=== PATIENT | female | born 1980 | race Caucasian/White ===

== ENCOUNTER 2017-02-24 09:06 | Emergency (ER) | payer OTHER ==
[~2017-02-24] VITALS: Ht 162.6 cm; Wt 65.0 kg
[~2017-02-24 09:06] MED LIST: IBUP600T OR; VICO5TAB OR
[2017-02-24] MEDS ORDERED: IBUP-1022 PO (09:17)
[2017-02-24] MEDS ORDERED: GI COCKTAIL 50ML BTL(HYOSCYAMINE/MAALOX/LIDOCAINE VISCOUS)(1:3:1) PO ONE (10:00)
[2017-02-24] MEDS ORDERED: ONDANSETRON 4 MG ORAL DISINTEGRATING TAB (S0181) PO ONE (10:00)
[2017-02-24 10:07] LABS: BASO # 0.1 K/mm3 (0.0-0.2); BASO % 0.9 % (0.0-1.0); EOS # 0.2 K/mm3 (0.0-0.50); EOS % 3.1 % (0.0-3.0); LARGE UNSTAINED CELL # 0.1 K/mm3 (0.0-0.4); LARGE UNSTAINED CELL % 1.6 % (0.0-4.0); LYMPH # 1.4 K/mm3 (1.5-4.5); LYMPH % 21.1 % (24.0-44.0); MEAN CORPUSCULAR HEMOGLOBIN 30.4 pg (27.0-33.0); MEAN CORPUSCULAR HGB CONC 35.2 g/dl (32.0-36.5); MEAN CORPUSCULAR VOLUME 86.4 fl (80.0-96.0); MONO # 0.4 K/mm3 (0.0-0.8); MONO % 5.9 % (0.0-5.0); NEUTROPHILS # 4.6 K/mm3 (1.8-7.7); NEUTROPHILS % 67.4 % (36.0-66.0); PLATELET COUNT, AUTOMATED 271 k/mm3 (150-450); RED CELL DISTRIBUTION WIDTH 12.1 % (11.5-14.5); WHITE BLOOD COUNT 6.8 K/mm3 (4.0-10.0)
--- NOTE | 2017-02-24 10:31 | REP ---
ABDOMEN SERIES: Three views. HISTORY: Nausea, epigastric pain, NSAID use. COMPARISON STUDY: November 12, 2008. FINDINGS: Upright chest radiograph is normal. There is no evidence of infiltrate or free subdiaphragmatic air. Heart is not enlarged. Pulmonary vasculature is not increased. Supine and erect views of the abdomen shows umbilical jewelry. Bowel gas pattern is normal. No mass, organomegaly, or pathologic calcification is seen. There is some degenerative sclerosis on the right side of the symphysis pubis consistent with osteitis pubis. IMPRESSION: No acute abnormality. Signed by Rakesh Flores MD 02/24/2017 01:11 P
[2017-02-24 10:35] LABS: ALBUMIN 3.6 GM/DL (3.2-5.2); ALBUMIN/GLOBULIN RATIO 1.13 (1.00-1.93); ALKALINE PHOSPHATASE 77 U/L (45-117); ALT/SGPT 15 U/L (12-78); AMYLASE 52 U/L (25-115); ANION GAP 8 MEQ/L (8-16); AST/SGOT 11 U/L (15-37); BILIRUBIN,DIRECT < 0.1 MG/DL (0.0-0.2); BILIRUBIN,TOTAL 0.3 MG/DL (0.2-1.0); BLOOD UREA NITROGEN 14 MG/DL (7-18); CALCIUM LEVEL 8.8 MG/DL (8.5-10.1); CARBON DIOXIDE LEVEL 27 MEQ/L (21-32); CHLORIDE LEVEL 109 MEQ/L (98-107); CREATININE FOR GFR 0.56 MG/DL (0.55-1.02); GLOMERULAR FILTRATION RATE > 60.0 (>60); GLUCOSE, FASTING 70 MG/DL (70-105); POTASSIUM SERUM 3.8 MEQ/L (3.5-5.1); SODIUM LEVEL 144 MEQ/L (136-145); TOTAL PROTEIN 6.8 GM/DL (6.4-8.2)
--- NOTE | 2017-02-24 10:37 | REP ---
Right upper quadrant sonography: History: Postprandial epigastric pain. Comparison study: Comparison CT study September 29, 2014. Findings: Scanning through the right upper quadrant of the abdomen demonstrates a somewhat contracted appearing , thin-walled gallbladder without evidence of stone or polyp. Common bile duct is normal measuring 0.3 cm in greatest diameter. No focal liver lesion is seen. Liver size is normal. No pancreatic abnormality is observed. No right renal abnormality is seen. There is no evidence of ascites. The right kidney measures 11.2 x 5.9 x the 4.4 the cm. Impression: The gallbladder has a somewhat contracted appearance, otherwise negative right upper quadrant sonography. Signed by Rakesh Flores MD 02/24/2017 10:29 A
[2017-02-24] MEDS ORDERED: SIME1CAP PO (10:45)
[2017-02-24] MEDS ORDERED: PROT1TAB2 PO (10:45)
[2017-02-24] MEDS ORDERED: ZOFR4TAB3 PO (10:45)
[2017-02-24 10:50] VITALS: BP 106/67
== END 2017-02-24 10:51 | disposition home or self-care (01) ==
LOC: M ED 09:06
DX: K29.00 Acute gastritis without bleeding (principal); F17.200 Nicotine dependence, unspecified, uncomplicated; Z79.899 Other long term (current) drug therapy

== ENCOUNTER 2017-04-25 09:21 | Emergency (ER) | payer OTHER ==
[~2017-04-25] VITALS: Ht 157.5 cm; Wt 65.1 kg
[~2017-04-25 09:21] MED LIST changes: +IBUP-1022 PO; +PROT1TAB2 PO; +SIME1CAP PO; +ZOFR4TAB3 PO
[2017-04-25 09:23] VITALS: BP 119/72
[2017-04-25] MEDS ORDERED: KEFL500C17 PO (09:44)
[2017-04-25] MEDS ORDERED: FLON1SPR (09:45)
== END 2017-04-25 09:50 | disposition home or self-care (01) ==
LOC: M ED 09:21
DX: J01.90 Acute sinusitis, unspecified (principal); Z87.59 Personal history of other complications of pregnancy, childbirth and the puerperium

== ENCOUNTER → 2017-08-10 | Outpatient (REF) | payer OTHER ==
[2017-08-13 00:07] LABS: HPV HYBRID CAPTURE II Negative (Negative)
== END ==
LOC: M SFHCWAGY 11:39
DX: Z12.4 Encounter for screening for malignant neoplasm of cervix (principal)

== ENCOUNTER → 2017-08-16 | Outpatient (CLI) | payer OTHER | LOC: M WHC 09:48 | DX: Z12.31 Encounter for screening mammogram for malignant neoplasm of breast (principal); Z80.3 Family history of malignant neoplasm of breast | CPT/HCPCS: 77067 ==

== ENCOUNTER 2017-08-26 09:19 | Day surgery (SDC) | payer OTHER ==
[2017-08-26] MEDS: NS 1,000 ML IV (09:40)
[2017-08-26] MEDS ORDERED: fentaNYL 100 MCG/2 ML INJECTION (J3010) As Ordered (10:46)
[2017-08-26] MEDS ORDERED: LIDOCAINE 2% INJ 100 MG/5 ML SDV (FOR ANES.) As Ordered (10:55)
[2017-08-26] MEDS ORDERED: PROPOFOL 200 MG/20 ML VIAL As Ordered ×2 (10:55)
== END 2017-08-26 11:37 | disposition home or self-care (01) ==
LOC: M OPP 09:19
DX: K58.1 Irritable bowel syndrome with constipation (principal); R10.9 Unspecified abdominal pain; R12 Heartburn; K44.9 Diaphragmatic hernia without obstruction or gangrene; F17.210 Nicotine dependence, cigarettes, uncomplicated; F33.9 Major depressive disorder, recurrent, unspecified; F41.9 Anxiety disorder, unspecified; Z79.899 Other long term (current) drug therapy; Z98.890 Other specified postprocedural states; Z80.0 Family history of malignant neoplasm of digestive organs
CPT/HCPCS: 45378

== ENCOUNTER 2017-09-05 10:50 | Emergency (ER) | payer OTHER | END 2017-09-05 13:09 | disposition home or self-care (01) | LOC: M ED 10:50 | DX: J06.9 Acute upper respiratory infection, unspecified (principal); Z20.828 Contact with and (suspected) exposure to other viral communicable diseases; F41.9 Anxiety disorder, unspecified; F32.9 Major depressive disorder, single episode, unspecified; F17.210 Nicotine dependence, cigarettes, uncomplicated | CPT/HCPCS: 71046 ==

== ENCOUNTER → 2017-09-09 | Outpatient (REF) | payer OTHER ==
[2017-09-09 17:55] LABS: BASO # 0.1 10^3/uL (0.0-0.2); BASO % 0.7 % (0.0-1.0); EOS # 0.3 10^3/uL (0.0-0.50); EOS % 3.3 % (0.0-3.0); HEMATOCRIT 42.5 % (36.0-47.0); HEMOGLOBIN 14.5 g/dl (12.0-15.5); IMMATURE GRANULOCYTE % 0.1 % (0-3.0); LYMPH # 1.9 10^3/uL (1.5-4.5); LYMPH % 25.7 % (24.0-44.0); MEAN CORPUSCULAR HEMOGLOBIN 29.1 pg (27.0-33.0); MEAN CORPUSCULAR HGB CONC 34.1 g/dl (32.0-36.5); MEAN CORPUSCULAR VOLUME 85.3 fl (80.0-96.0); MONO # 0.5 10^3/uL (0.0-0.8); MONO % 6.6 % (0.0-5.0); NEUTROPHILS # 4.8 10^3/uL (1.8-7.7); NEUTROPHILS % 63.6 % (36.0-66.0); PLATELET COUNT, AUTOMATED 271 10^3/uL (150-450); RED BLOOD COUNT 4.98 10^6/uL (4.00-5.40); RED CELL DISTRIBUTION WIDTH 12.4 % (11.5-14.5); WHITE BLOOD COUNT 7.5 10^3/uL (4.0-10.0)
[2017-09-09 18:10] LABS: TOTAL 25(OH) VITAMIN D 15.7 NG/ML (30.0-100.0)
[2017-09-09 18:18] LABS: ALBUMIN 3.9 GM/DL (3.2-5.2); ALBUMIN/GLOBULIN RATIO 1.05 (1.00-1.93); ALKALINE PHOSPHATASE 86 U/L (45-117); ALT/SGPT 17 U/L (12-78); ANION GAP 5 MEQ/L (8-16); AST/SGOT 17 U/L (7-37); BILIRUBIN,TOTAL 0.4 MG/DL (0.2-1.0); BLOOD UREA NITROGEN 7 MG/DL (7-18); CARBON DIOXIDE LEVEL 28 MEQ/L (21-32); CHLORIDE LEVEL 109 MEQ/L (98-107); CREATININE FOR GFR 0.69 MG/DL (0.55-1.30); GLOMERULAR FILTRATION RATE > 60.0 (>60); GLUCOSE, FASTING 86 MG/DL (70-100); IRON (FE) 101 UG/DL (50-170); POTASSIUM SERUM 3.8 MEQ/L (3.5-5.1); SODIUM LEVEL 142 MEQ/L (136-145); THYROID STIMULATING HORMONE 0.921 uIU/ML (0.358-3.740); TOTAL PROTEIN 7.6 GM/DL (6.4-8.2)
== END ==
LOC: M LAB REF 17:10
DX: R53.83 Other fatigue (principal)

== ENCOUNTER → 2017-09-13 | Outpatient (CLI) | payer OTHER | LOC: M SLEEP HO 09:48 | DX: R53.83 Other fatigue (principal) | CPT/HCPCS: G0399 ==

== ENCOUNTER 2017-10-11 21:22 | Emergency (ER) | payer OTHER | END 2017-10-12 00:47 | disposition left against medical advice (07) | LOC: M ED 21:22 | DX: Z53.29 Procedure and treatment not carried out because of patient's decision for other reasons (principal) ==

== ENCOUNTER 2017-10-17 09:55 | Emergency (ER) | payer OTHER | END 2017-10-17 11:21 | disposition home or self-care (01) | LOC: M ED 09:55 | DX: L84 Corns and callosities (principal); M79.672 Pain in left foot; J30.2 Other seasonal allergic rhinitis; K21.9 Gastro-esophageal reflux disease without esophagitis; F41.9 Anxiety disorder, unspecified; F32.9 Major depressive disorder, single episode, unspecified; F17.200 Nicotine dependence, unspecified, uncomplicated; Z79.899 Other long term (current) drug therapy | CPT/HCPCS: 11055 ==

== ENCOUNTER 2018-01-04 09:09 | Emergency (ER) | payer OTHER ==
[2018-01-04 09:46] LABS: KETONE, URINE AUTO RFX NEGATIVE (NEGATIVE); MUCUS, URINE RFX LARGE (NEGATIVE); NITRITE, URINE AUTO RFX NEGATIVE (NEGATIVE); RBC, URINE AUTO RFX 1 /HPF (0-3); SPECIFIC GRAVITY UR AUTO RFX 1.021 (1.002-1.035); SQUAM EPITHELIAL CELL UR AURFX 11 /HPF (0-6); WBC, URINE AUTO RFX 0 /HPF (0-3)
[2018-01-04] MEDS: KETOROLAC 60 MG/2 ML VIAL (J1885) IM (09:47)
[2018-01-04] MEDS: METOCLOPRAMIDE INJ 10MG/2ML VIAL (J2765) IM (09:48)
[2018-01-04 10:00] LABS: LEUKOCYTE ESTERASE UR AUTO RFX TRACE (NEGATIVE)
== END 2018-01-04 10:52 | disposition home or self-care (01) ==
LOC: M ED 09:09
DX: H65.93 Unspecified nonsuppurative otitis media, bilateral (principal); M54.5 Low back pain; R30.9 Painful micturition, unspecified; J30.2 Other seasonal allergic rhinitis; Z79.51 Long term (current) use of inhaled steroids; F17.210 Nicotine dependence, cigarettes, uncomplicated
CPT/HCPCS: J1885

== ENCOUNTER 2018-03-09 03:21 | Emergency (ER) | payer OTHER ==
[2018-03-09] MEDS: KETOROLAC 60 MG/2 ML VIAL (J1885) IM (05:55)
== END 2018-03-09 06:11 | disposition home or self-care (01) ==
LOC: M ED 03:21
DX: S86.911A Strain of unspecified muscle(s) and tendon(s) at lower leg level, right leg, initial encounter (principal); S86.912A Strain of unspecified muscle(s) and tendon(s) at lower leg level, left leg, initial encounter; X58.XXXA Exposure to other specified factors, initial encounter; Y92.89 Other specified places as the place of occurrence of the external cause; J30.2 Other seasonal allergic rhinitis; F17.201 Nicotine dependence, unspecified, in remission
CPT/HCPCS: J1885

== ENCOUNTER 2018-05-14 16:31 | Emergency (ER) | payer OTHER ==
[2018-05-14 17:07] LABS: HEMATOCRIT 42.1 % (36.0-47.0); HEMOGLOBIN 14.4 g/dl (12.0-15.5); MEAN CORPUSCULAR HEMOGLOBIN 29.2 pg (27.0-33.0); MEAN CORPUSCULAR HGB CONC 34.2 g/dl (32.0-36.5); MEAN CORPUSCULAR VOLUME 85.4 fl (80.0-96.0); PLATELET COUNT, AUTOMATED 200 10^3/uL (150-450); RED BLOOD COUNT 4.93 10^6/uL (4.00-5.40)
[2018-05-14 17:33] LABS: AMPHETAMINES LEVEL URINE NEGATIVE (NEGATIVE); BARBITURATES URINE NEGATIVE (NEGATIVE); BENZODIAZEPINES URINE NEGATIVE (NEGATIVE); CANNABINOIDS URINE NEGATIVE (NEGATIVE); COCAINE METABOLITE URINE NEGATIVE (NEGATIVE); METHADONE URINE NEGATIVE (NEGATIVE); OPIATES URINE NEGATIVE (NEGATIVE); PHENCYCLIDINE URINE NEGATIVE (NEGATIVE)
[2018-05-14 17:47] LABS: ALBUMIN/GLOBULIN RATIO 1.18 (1.00-1.93); ALKALINE PHOSPHATASE 91 U/L (45-117); ALT/SGPT 17 U/L (12-78); ANION GAP 10 MEQ/L (8-16); AST/SGOT 18 U/L (7-37); BILIRUBIN,DIRECT 0.1 MG/DL (0.0-0.2); BILIRUBIN,TOTAL 0.5 MG/DL (0.2-1.0); BLOOD UREA NITROGEN 12 MG/DL (7-18); CALCIUM LEVEL 8.4 MG/DL (8.5-10.1); CARBON DIOXIDE LEVEL 21 MEQ/L (21-32); CHLORIDE LEVEL 108 MEQ/L (98-107); CREATININE FOR GFR 0.79 MG/DL (0.55-1.30); GLOMERULAR FILTRATION RATE > 60.0 (>60); GLUCOSE, FASTING 138 MG/DL (70-100); POTASSIUM SERUM 3.5 MEQ/L (3.5-5.1); SALICYLATE LEVEL 2.7 MG/DL (5.0-30.0); SODIUM LEVEL 139 MEQ/L (136-145); THYROID STIMULATING HORMONE 0.623 uIU/ML (0.358-3.740); TOTAL PROTEIN 7.4 GM/DL (6.4-8.2)
[2018-05-14 17:48] LABS: ACETAMINOPHEN LEVEL < 2.0 UG/ML (10.0-30.0); ETHYL ALCOHOL (ETHANOL) < 0.003 % (0.000-0.010)
== END 2018-05-14 18:35 | disposition home or self-care (01) ==
LOC: M ED 16:31
DX: F33.1 Major depressive disorder, recurrent, moderate (principal); F17.210 Nicotine dependence, cigarettes, uncomplicated; Z79.899 Other long term (current) drug therapy
CPT/HCPCS: 80320

== ENCOUNTER 2018-12-08 20:56 | Emergency (ER) | payer OTHER ==
[~2018-12-08] VITALS: Ht 160 cm; Wt 65.0 kg
[~2018-12-08 20:56] MED LIST changes: +CLAR1TAB2 PO; +FLON1SPR; +FLON1SPR NARES; +KEFL500C17 PO; +OMEP1CAP73; +TESS100C PO; +ZOFR4TAB14; +ZOFR4TAB14 PO; -ZOFR4TAB3 PO; +[UNRECOGNIZED DRUG - CODE] EXT
--- NOTE | 2018-12-08 21:46 | REP ---
Clinical: Trauma. Technique: AP, lateral, bilateral oblique views right foot . Findings: The osseous structures and joint spaces are intact and normal. There is no evidence for acute fracture or dislocation. Surrounding soft tissues are unremarkable. No subcutaneous emphysema or radiodense foreign body. Impression: Age-appropriate examination . No acute fracture or dislocation. Electronically Signed by Carlos Little MD 12/08/2018 09:38 P
[2018-12-08 22:47] VITALS: BP 120/74
== END 2018-12-08 22:50 | disposition home or self-care (01) ==
LOC: M ED 20:56
DX: M25.571 Pain in right ankle and joints of right foot (principal); W22.09XA Striking against other stationary object, initial encounter; Y92.098 Other place in other non-institutional residence as the place of occurrence of the external cause; F17.210 Nicotine dependence, cigarettes, uncomplicated

== ENCOUNTER → 2019-03-15 | Outpatient (CLI) | payer OTHER ==
[~2019-03-15] MED LIST changes: -OMEP1CAP73; +OMEP20CA4
--- NOTE | 2019-03-15 12:48 | REPMRS ---
Patient History The patient states she had a clinical breast exam in 03/2019. Family history of breast cancer at age 50 in mother, colorectal cancer at age 45 in brother, colorectal cancer in maternal aunt, pancreatic cancer at age 50 or over in maternal aunt. 3D TOMOSYNTHESIS WAS PERFORMED. The Adriel Jnug lifetime risk for breast cancer is 18.5%. Digital Woman Screen Mammo: March 15, 2019 - Exam #: [id number] Bilateral CC and MLO view(s) were taken. Technologist: Domenica Cano Technologist Prior study comparison: August 16, 2017, digital woman screen mammo performed at [facility]. September 26, 2012, right breast digital mammo diagnostic unilateral, performed at [facility]. FINDINGS: The breast tissue is heterogeneously dense. This may lower the sensitivity of mammography. There has been no change in the appearance of the mammogram from the prior studies. There is a moderate amount of residual fibroglandular tissue which is fairly symmetric. There is no interval development of dominant mass, areas of architectural distortion, or clustered microcalcification typical of malignancy. Assessment: BI-RADS/ACR category 1 mammogram. Negative Mammogram. Recommendation Routine screening mammogram in 1 year (for women over age 40). This mammogram was interpreted with the aid of an FDA-approved computer-aided dectection system. Electronically Signed By: Xavier Brown MD 03/15/19 [id number]
== END ==
LOC: M WHC 10:46
PROVIDERS: ATTEND Nurse Practitioner Women's Health
DX: Z12.31 Encounter for screening mammogram for malignant neoplasm of breast (principal); Z80.3 Family history of malignant neoplasm of breast; Z80.41 Family history of malignant neoplasm of ovary

== ENCOUNTER → 2019-09-26 | Outpatient (CLI) | payer OTHER ==
[~2019-09-26] MED LIST changes: +OMEP1CAP73; -OMEP20CA4; +PROHANCE 279.3MG/ML 15ML VIAL (A9576) As Ordered ONE
--- NOTE | 2019-09-26 10:55 | REP ---
MRI BILATERAL BREASTS WITH AND WITHOUT CONTRAST: FAMILY HISTORY: Mother with breast cancer at age 50. [facility] lifetime risk of breast cancer 18.5%. Comparison mammogram 03/15/2019. TECHNIQUE: Multiple sequences obtained in the axial, coronal, and sagittal planes prior to and following the intravenous administration of 13 mL ProHance. Images are evaluation in the Equiom software including dynamic post IV gadolinium axial T1 fat sat images, subtraction images, color overlay images, CAD imaging and MIP reconstruction images. There is moderately extreme pattern of parenchymal tissue bilaterally. There is moderate to severe background parenchymal enhancement. Multiple subcentimeter cysts are seen bilaterally. There are also small subcentimeter enhancing fibroadenomas bilaterally. There appears to be a intramammary lymph node in the upper outer quadrant of the right breast demonstrating an oval reniform shape with a fatty hilum. There is no axillary adenopathy. In the posterior left breast at about 12 o'clock there is an oval nodule with slightly lobulated margins. It measures approximately 8 x 11 x 8 mm. There are areas of internal type 2 and type 3 enhancement. This represents a solid mass. There may be nonenhancing internal septations which would favor a fibroadenoma. However, given the type 2 and type 3 enhancement, I would suggest second look ultrasound to identify the nodule for ultrasound guided biopsy. IMPRESSION: BIRADS category 4 suspicious breast MRI. Extreme pattern of parenchymal tissue with moderately severe background parenchymal enhancement. Subcentimeter cysts seen bilaterally as well as subcentimeter fibroadenomas. A dominant solid nodule posteriorly in the left breast at 12 o'clock measures 8 x 11 x 8 mm. This is indeterminate. There are internal areas of type 2 and type 3 enhancement. Recommend second look ultrasound to identify the nodule for ultrasound guided biopsy. Electronically Signed by Xavier Brown MD 09/26/2019 12:04 P
== END ==
LOC: M RAD 07:43
PROVIDERS: ATTEND Nurse Practitioner Women's Health
DX: R92.2 Inconclusive mammogram (principal); Z80.3 Family history of malignant neoplasm of breast; N63.25 Unspecified lump in the left breast, overlapping quadrants
CPT/HCPCS: A9576; C8908

== ENCOUNTER → 2019-09-28 | Outpatient (CLI) | payer OTHER ==
[~2019-09-28] MED LIST changes: -PROHANCE 279.3MG/ML 15ML VIAL (A9576) As Ordered ONE
--- NOTE | 2019-09-28 14:04 | REP ---
ULTRASOUND LEFT BREAST: Real-time sonographic evaluation of the left breast performed and correlated with the recent breast MRI 09/26/2019. That breast MRI showed a solid nodule at 12-o'clock posteriorly which show demonstrates somewhat suspicious enhancement characteristics. Posteriorly at the 12-o'clock position, there does appear to be an oval hypoechoic solid nodule. This measures approximately 1.2 x 0.5 x 1.2 cm. This appears to correspond to the aforementioned nodule on the MRI. No other nodule is identified between 11 and 1-o'clock position of the left breast. IMPRESSION: BIRADS category 4 ultrasound left breast. Solid nodule at 12-o'clock corresponds to the nodule seen on the breast MRI of 09/26/2019, measuring 1.2 x 0.5 x 1.2 cm. Recommend ultrasound-guided biopsy. Electronically Signed by Xavier Brown MD 09/28/2019 04:51 P
== END ==
LOC: M RAD 10:46
PROVIDERS: ATTEND Nurse Practitioner Women's Health
DX: R92.8 Other abnormal and inconclusive findings on diagnostic imaging of breast (principal)

== ENCOUNTER → 2019-10-08 | Outpatient (REF) | payer OTHER ==
[2019-10-08 17:55] LABS: THYROID STIMULATING HORMONE 1.09 uIU/ML (0.358-3.740)
[2019-10-08 17:56] LABS: PROLACTIN 4.1 NG/ML
== END ==
LOC: M PLALAB 15:23
PROVIDERS: ATTEND Surgery
DX: N64.52 Nipple discharge (principal)

== ENCOUNTER → 2019-10-19 | Outpatient (CLI) | payer OTHER ==
[~2019-10-19] MED LIST changes: +LIDOCAINE 1% MDV 20ML VIAL As Ordered ONE; +SODIUM BICARBONATE 8.4% INJ 50MEQ 50 ML VIAL As Ordered ONE
[2019-10-19 13:24] VITALS: BP 114/70
--- NOTE | 2019-10-19 15:26 | REP ---
ULTRASOUND GUIDED LEFT BREAST BIOPSY The procedure was performed under the direct supervision of Dr. Brown The patient has a history of a 1.2 x 0.5 x 1.2 cm hypoechoic nodule in the 12 o'clock position of the left breast seen on a previous ultrasound dated 09/28/2019. The risks and benefits of the procedure were explained to the patient and informed consent was obtained. The left breast nodule was localized using ultrasound guidance. The skin was prepped and draped in a sterile fashion. 1% Xylocaine was used as a local anesthetic. Using ultrasound guidance a 14 gauge coaxial needle biopsy system was inserted and six core biopsy samples were obtained. A marker clip was placed at the biopsy site. The patient tolerated the procedure well and there were no immediate complications. After the appropriate amount of monitored convalescence the patient was discharged from the department. Electronically Signed by LAURYN Wilcox 10/19/2019 02:58 P Electronically Signed by Xavier Brown MD 10/19/2019 03:16 P
== END ==
LOC: M IRPRO 11:19
PROVIDERS: ATTEND Surgery
DX: N60.12 Diffuse cystic mastopathy of left breast (principal)

== ENCOUNTER → 2019-10-19 | Outpatient (CLI) | payer OTHER ==
[~2019-10-19] MED LIST changes: -LIDOCAINE 1% MDV 20ML VIAL As Ordered ONE; -SODIUM BICARBONATE 8.4% INJ 50MEQ 50 ML VIAL As Ordered ONE
--- NOTE | 2019-10-20 08:25 | REP ---
DIGITAL DIAGNOSTIC UNILATERAL LEFT BREAST MAMMOGRAPHY: TWO VIEWS. CAD. HISTORY: Marker clip placement views. The patient status post ultrasound-guided needle biopsy procedure. Comparison mammography, March 15, 2019. FINDINGS: Craniocaudad and mediolateral views demonstrate the biopsy marker clip in the 12-o'clock position. There is no evidence of hematoma. IMPRESSION: Needle biopsy marker clip seen in the 12-o'clock position middle third left breast. No hematoma seen. This mammogram was interpreted with the aid of an FDA-approved computer-aided detection system.
== END ==
LOC: M WHC 14:15
PROVIDERS: ATTEND Surgery
DX: N63.25 Unspecified lump in the left breast, overlapping quadrants (principal)

== ENCOUNTER → 2019-12-11 | Outpatient (CLI) | payer OTHER ==
[~2019-12-11] MED LIST changes: +PROHANCE 279.3MG/ML 15ML VIAL As Ordered ONE
--- NOTE | 2019-12-12 12:21 | REP ---
BILATERAL BREAST MRI STUDY WITHOUT AND WITH IV GADOLINIUM: HISTORY: Evaluate clip placement. The patient had breast MRI study September 26, 2019. A dominant enhancing nodule is seen at 12-o'clock position 12 mm in diameter. Second look ultrasound showed a hypoechoic oval shaped nodule in this location. Ultrasound-guided needle biopsy procedure was performed on October 19, 2019 with clip marker placement. Pathologic results was benign breast tissue with fibrocystic changes with sclerosing adenosis and a programmed metaplasia. TECHNIQUE: Three Rama MRI imaging was performed with a dedicated breast coil. Axial, coronal, and sagittal T1 and T2-weighted scans were obtained with and without fat saturation in the usual fashion. The study includes dynamically acquired post gadolinium enhanced imaging subtraction imaging. Maximal intensity projection and multiplanar re-formation imaging is included as well. The study was interpreted with the aid of CreateTripsD, an FDA approved computer-aided detection (CAD) software program, on a dedicated breast MRI work station. The gadolinium enhancement dose is 13 mL of intravenous ProHance. FINDINGS: The dominant nodule is again seen 12 mm in greatest diameter in the left breast posterior third 12-o'clock position. Immediately adjacent to the nodule, the recently positioned hide remark clip placement device is seen. This indicates concordance between the sonographic target and the MR target Scattered sub centimeter cysts are again seen. An extreme pattern of fibroglandular tissue is present bilaterally as before. There is marked background parenchymal enhancement again seen. There is no evidence of hematoma. Apart from the clip marker, the study is unchanged. IMPRESSION: The HydroMARK needle biopsy marker clip is seen immediately adjacent to the dominant nodule, previously identified in the left breast. Electronically Signed by Rakesh Flores MD 12/12/2019 12:32 P
== END ==
LOC: M RAD 15:08
PROVIDERS: ATTEND Surgery
DX: N63.20 Unspecified lump in the left breast, unspecified quadrant (principal)
CPT/HCPCS: A9576; C8908

== ENCOUNTER → 2019-12-27 | Outpatient (CLI) | payer OTHER ==
[~2019-12-27] MED LIST changes: +MAPA500T2 PO; -PROHANCE 279.3MG/ML 15ML VIAL As Ordered ONE; +ULTR50TA8 PO
[2019-12-27 13:52] LABS: BASO # 0.1 10^3/uL (0.0-0.2); BASO % 0.9 % (0.0-1.0); EOS # 0.2 10^3/uL (0.0-0.5); EOS % 2.8 % (0.0-3.0); HEMATOCRIT 39.8 % (36.0-47.0); HEMOGLOBIN 13.3 g/dl (12.0-15.5); LYMPH # 1.9 10^3/uL (1.5-5.0); LYMPH % 24.8 % (24.0-44.0); MEAN CORPUSCULAR HEMOGLOBIN 29.5 pg (27.0-33.0); MEAN CORPUSCULAR HGB CONC 33.4 g/dl (32.0-36.5); MEAN CORPUSCULAR VOLUME 88.2 fl (80.0-96.0); MONO # 0.5 10^3/uL (0.0-0.8); NEUTROPHILS # 5.1 10^3/uL (1.5-8.5); NEUTROPHILS % 65.2 % (36.0-66.0); PLATELET COUNT, AUTOMATED 281 10^3/uL (150-450); RED BLOOD COUNT 4.51 10^6/uL (4.00-5.40); WHITE BLOOD COUNT 7.8 10^3/uL (4.0-10.0)
[2019-12-27 14:22] LABS: ALBUMIN 3.7 GM/DL (3.2-5.2); ALT/SGPT 24 U/L (12-78); BILIRUBIN,TOTAL 0.3 MG/DL (0.2-1.0); BLOOD UREA NITROGEN 12 MG/DL (7-18); CALCIUM LEVEL 8.9 MG/DL (8.5-10.1); CARBON DIOXIDE LEVEL 26 MEQ/L (21-32); CHLORIDE LEVEL 110 MEQ/L (98-107); CREATININE FOR GFR 0.82 MG/DL (0.55-1.30); GLOMERULAR FILTRATION RATE > 60.0 (>60); GLUCOSE, FASTING 85 MG/DL (70-100); POTASSIUM SERUM 3.9 MEQ/L (3.5-5.1); SODIUM LEVEL 142 MEQ/L (136-145)
--- NOTE | 2019-12-27 15:11 | ECGEPIP ---
[facility] Test Date: 2019-12-27 Pat Name: MAUREEN TIJERINA Department: Room: - Gender: Female Research Manager: [facility] : 1980 Requested By: Hill VIGIL Order Number: [id number] Reading MD: Andrew Guillen Measurements Intervals Hallock Rate: 67 P: 63 SC: 164 QRS: 43 QRSD: 88 T: 37 QT: 377 QTc: 398 Interpretive Statements SINUS RHYTHM WITH SINUS ARRHYTHMIA Normal Electronically Signed on 12-27-2019 15:11:18 EDT by Andrew Guillen
--- NOTE | 2019-12-27 16:39 | REP ---
TWO-VIEW CHEST: REASON: Anemia. COMPARISON: 09/05/2017 FINDINGS: The superior mediastinal structures are midline. The cardiac silhouette is unremarkable in size, shape, and position. The diaphragmatic surfaces of the lungs are regular, and the costophrenic angles are clear. The pulmonary tai are clear. The imaged osseous structures are intact. IMPRESSION: There is no acute cardiopulmonary disease. No change from the prior exam. Electronically Signed by Angelo Sanchez DO 12/27/2019 05:01 P
== END ==
LOC: M LAB 13:00
PROVIDERS: ATTEND Physician Assistant
DX: Z01.818 Encounter for other preprocedural examination (principal); R92.8 Other abnormal and inconclusive findings on diagnostic imaging of breast; Z86.2 Personal history of diseases of the blood and blood-forming organs and certain disorders involving the immune mechanism; Z72.0 Tobacco use

== ENCOUNTER → 2019-12-27 | Outpatient (CLI) | payer OTHER | LOC: M LABSMTC 12:04 | PROVIDERS: ATTEND Anesthesiology | DX: Z01.818 Encounter for other preprocedural examination (principal); Z11.59 Encounter for screening for other viral diseases | CPT/HCPCS: C9803; U0003 ==

== ENCOUNTER 2020-01-01 06:06 | Day surgery (SDC) | payer OTHER ==
[~2020-01-01] VITALS: Ht 162.6 cm; Wt 67.1 kg
[~2020-01-01 06:06] MED LIST changes: +LIDOCAINE 1% MDV 20ML VIAL SQ PRN; -ULTR50TA8 PO
[2020-01-01] MEDS ORDERED: LR 1,000 ML IV ONE (07:00)
[2020-01-01] MEDS ORDERED: HEPARIN SOD (PORCINE) 5000UNITS/ML 1ML VIAL/SYRINGE SQ ONE (07:00)
[2020-01-01] MEDS ORDERED: ceFAZolin SOD 2 GM in IV 1 EA IV ONE (07:00)
[2020-01-01] MEDS ORDERED: MIDAZOLAM INJ 2MG/2ML VIAL (J2250 PER 1MG) As Ordered ONE (07:06)
[2020-01-01] MEDS ORDERED: fentaNYL 100 MCG/2 ML INJECTION (J3010) As Ordered ONE ×2 (07:07→09:14)
[2020-01-01] MEDS ORDERED: LIDOCAINE 1% SDV 30ML VIAL As Ordered ONE (07:08)
[2020-01-01] MEDS ORDERED: propofoL 200 MG/20 ML VIAL As Ordered ONE (07:08)
[2020-01-01] MEDS ORDERED: BUPIVACAINE HCL 0.25% 30ML VIAL As Ordered ONE (07:09)
[2020-01-01] MEDS ORDERED: dexameTHASONE 4 MG/ML 1ML VIAL (J1100 PER 1MG) As Ordered ONE (07:13)
[2020-01-01] MEDS ORDERED: LIDOCAINE 2% 100MG/5ML SDV (FOR ANES.) As Ordered ONE (07:13)
[2020-01-01] MEDS ORDERED: KETOROLAC 60MG 2ML VIAL As Ordered ONE (07:15)
[2020-01-01] MEDS ORDERED: ONDANSETRON 4MG/2ML VIAL As Ordered ONE (07:15)
[2020-01-01] MEDS ORDERED: ACETAMINOPHEN 1000MG 100ML IV BTL (OFIRMEV) (J0131 PER 10MG) As Ordered ONE (08:01)
--- NOTE | 2020-01-01 09:57 | ROOPDOC ---
[facility] Report Of Operation Report of Operation DATE OF PROCEDURE: 01/01/20 PREPROCEDURE DIAGNOSES: Left breast mass with discordant pathology POSTPROCEDURE DIAGNOSES: Left breast mass with discordant pathology PROCEDURE: Left breast excisional biopsy with intraop wire placement SURGEON: Marion Gil GUN SEALING MACHINE OPERATOR: ANESTHESIA: general ESTIMATED BLOOD LOSS: Approximately 5 mL. COMPLICATIONS: none REMARKS: wire got displaced from the specimen, Stitch was placed at the side of the wire. The hydromark was identified outside the specimen. denser tissue was identified laterally and irregular tissue was identified inferiorly- both were taken as additional specimens for examination. DESCRIPTION OF PROCEDURE: INDICATIONS: Ms. Flores is a 39-year-old woman who was found to have a suspicious left breast mass on high risk screening MRI. Second look US was done and correlate was found and biopsied. Pathology came back as benign breast tissue with fibrocystic changes, apocrine metaplasia, microcysts, focal sclerosing adenosis and a few microcalcifications. After review of images and pathology with Dr. Flores from radiology, the pathology results were felt to be discordant. Another MRI was done to evaluate relationship of the clip to the suspicious lesion. Clip was noted to be adjacent to the lesion. Decision was made to proceed with excisional biopsy. She was medically cleared for surgery by her primary care doctor. Risks and possible complications of surgical procedure including bleeding, infection and injury to surrounding structures were explained to the patient and she wished to proceed. Consent was signed. My initials were placed on the operative site. Subcutaneous injection of 5000 units of heparin was done in Preop. DETAILS: Patient was taken to the operating room and placed on the operating room table. A sign in was called stating patients name, date of and the procedure to be done. Preoperative antibiotics were infused. Smooth induction of general anesthesia was done. Patients hands were extended on arm rests. Care was taken not to over extend the arms. Procedure was started with left breast intraop wire localization. Appropriate time out was done and patients name, date of , and the procedure to be done were confirmed. Left breast was cleaned by me. Intraoperative ultrasound was used again to confirm location of the Hydromark clip. Location of the clip was marked on the skin as well. 21 G KoAudiencePoints Breast Lesion Localization Needle was used to place 25 cm wire. The wire was placed next to the clip and the lesion. The lesion was posterior at the muscle level and the wire was not pushed past the lesion to avoid injury to surrounding structures. The images were captured confirming adequate placement of the localizing wire. Limousine [employer] Hearse Upholsterer assisted with the wire placement. Next, patients left breast and axilla were prepped and draped in the usual fashion. Care was taken not to displace the wire. Appropriate time out was done again prior second part of the procedure. Patients name, date of , and the procedure to be done were confirmed. Next, local anesthetic using 1% lidocaine and 0.25 % Marcaine 50/50 mix was injected at the site of planned periareolar incision. The incision was made with the scalpel. Subcutaneous skin flaps were raised and the guide wire was carefully pulled into the wound. Dissection was carries along the wire until the previously marked on the skin area of target lesion location was encountered. At this point, wider excision of the tissue surrounding the wire was done. The Hydromark clip was identified in the tissue with intraoperative hockey stick ultrasound probe Due to a very dense tissues, it was hard to monitor the location of the clip at all times with the US probe. During dissection, the wire was accidentally displaced from the tissue. The silk stitch was placed at the distal part of the wire site. The excisional biopsy specimen was carefully removed from the breast keeping its proper orientation and moved to the back table where margins were marked with the surgical inking kit following the standard colors recommendations. Specimen was then placed on the grid and placed in [employer] Specimen Imaging System. The image did not show the clip. We looked in the wound for the Hydromark. The clip was noted on the gauze outside the wound. The clip was placed on the grid and another picture of the specimen was taken showing the presence of the clip. The specimen was labeled with patients name and left excisional biopsy and sent to pathology. Palpation of surrounding tissues revealed denser appearing tissue at the lateral aspect of the cavity. Lateral margin was taken and surgical ink was used to amina new/true margin, which was defined as farthest away from the original lesion. Additional examination of tissues at the excisional biopsy cavity revealed additional irregular texture of tissue at the inferior aspect of the cavity. This is the area where the wire originally was placed and then the tissue was dissected away from the wire. This tissue was also removed- it was marked according to surgical specimen ink colors and was called inferior tissue. Next, the wound was irrigated thoroughly and adequate hemostasis was assured. Additional local anesthetic was injected into surrounding tissues. space was approximated with 2-0 Vicryl. The dermis was closed with 3-0 Monocryl and skin was closed with 4-0 Monocryl. Surgical glue was placed over the incision. Patient emerged from the anesthesia without any problems. Fluffs were placed over the operative site and patients chest was wrapped snuggly in the KINGSLEY wrap. Sponge and instrument counts were done and were correct. Patient tolerated procedure well and was taken to recovery unit in stable condition. MARION GIL DO Jan 01, 2020 09:57
[2020-01-01] MEDS ORDERED: ULTR50TA8 PO (09:59)
[2020-01-01] MEDS ORDERED: ONDANSETRON 4MG/2ML VIAL IV PRN (10:15)
[2020-01-01] MEDS ORDERED: LR 1,000 ML IV SCH (10:15)
[2020-01-01] MEDS ORDERED: METOCLOPRAMIDE INJ 10MG/2ML VIAL (J2765 PER 1) IV PRN (10:15)
[2020-01-01] MEDS ORDERED: PERCOCET 5MG/325MG TAB PO PRN (10:15)
[2020-01-01] MEDS ORDERED: traMADol 50 MG TAB As Ordered ONE (10:35)
[2020-01-01] MEDS: fentaNYL 100 MCG/2 ML INJECTION (J3010) IV PRN ×4 (10:38→10:53)
[2020-01-01] MEDS ORDERED: traMADol 50 MG TAB PO ONE (11:15)
[2020-01-01 11:50] VITALS: BP 106/69
--- NOTE | 2020-01-02 09:29 | REP ---
LEFT BREAST ULTRASOUND: HISTORY: Sonographic guidance. Left breast lesion for. Localization. FINDINGS: Sonographic guidance is provided to Dr. Palmer who performed needle localization procedure under ultrasound guidance. Electronically Signed by Rakesh Flores MD 01/02/2020 12:48 P
--- NOTE | 2020-01-02 12:17 | REP ---
SPECIMEN RADIOGRAPHY LEFT BREAST: Four views. HISTORY: Breast biopsy. FINDINGS: Specimen radiography demonstrates a surgical ligature attached to one edge of the irregularly shaped specimen. There are no microcalcifications visible. Somewhat nodular breast parenchyma. No dominant nodule is seen. An additional radiograph shows the HydroMARK marker clip within a 4 mm breast specimen separate from the main excision. IMPRESSION: Specimen radiography left breast. Electronically Signed by Rakesh Flores MD 01/02/2020 12:50 P
== END 2020-01-01 12:13 | disposition home or self-care (01) ==
LOC: M SDC 06:06
PROVIDERS: ATTEND Surgery
DX: D24.2 Benign neoplasm of left breast (principal); N64.52 Nipple discharge; N60.12 Diffuse cystic mastopathy of left breast; K21.9 Gastro-esophageal reflux disease without esophagitis; G47.30 Sleep apnea, unspecified; G43.909 Migraine, unspecified, not intractable, without status migrainosus; F41.9 Anxiety disorder, unspecified; F32.9 Major depressive disorder, single episode, unspecified; F17.290 Nicotine dependence, other tobacco product, uncomplicated
CPT/HCPCS: 19125; 36415; 76942; 81025; 86850; 86900; 86901; 88305; J0131; J0690; J1100; J1644; J2250; J2405; J3010

== ENCOUNTER → 2020-02-15 | Outpatient (REF) | payer OTHER ==
[~2020-02-15] MED LIST changes: -LIDOCAINE 1% MDV 20ML VIAL SQ PRN; +ULTR50TA8 PO
[2020-02-15 13:08] LABS: BASO # 0.1 10^3/uL (0.0-0.2); BASO % 1.1 % (0.0-1.0); EOS # 0.3 10^3/uL (0.0-0.5); EOS % 3.9 % (0.0-3.0); HEMATOCRIT 38.6 % (36.0-47.0); HEMOGLOBIN 13.3 g/dl (12.0-15.5); LYMPH # 1.5 10^3/uL (1.5-5.0); LYMPH % 23.9 % (24.0-44.0); MEAN CORPUSCULAR HGB CONC 34.5 g/dl (32.0-36.5); MEAN CORPUSCULAR VOLUME 87.1 fl (80.0-96.0); MONO # 0.5 10^3/uL (0.0-0.8); MONO % 7.5 % (0.0-5.0); NEUTROPHILS # 4.1 10^3/uL (1.5-8.5); NEUTROPHILS % 63.4 % (36.0-66.0); PLATELET COUNT, AUTOMATED 252 10^3/uL (150-450); RED BLOOD COUNT 4.43 10^6/uL (4.00-5.40); WHITE BLOOD COUNT 6.4 10^3/uL (4.0-10.0)
[2020-02-15 13:16] LABS: ALT/SGPT 20 U/L (12-78); BILIRUBIN,TOTAL 0.5 MG/DL (0.2-1.0); BLOOD UREA NITROGEN 11 MG/DL (7-18); CARBON DIOXIDE LEVEL 26 MEQ/L (21-32); CHLORIDE LEVEL 108 MEQ/L (98-107); CREATININE FOR GFR 0.73 MG/DL (0.55-1.30); GLOMERULAR FILTRATION RATE > 60.0 (>60); GLUCOSE, FASTING 93 MG/DL (70-100); POTASSIUM SERUM 3.8 MEQ/L (3.5-5.1); SODIUM LEVEL 141 MEQ/L (136-145)
[2020-02-15 13:17] LABS: ALBUMIN 3.8 GM/DL (3.2-5.2); CHOLESTEROL LEVEL 168 MG/DL (<200); FREE T4 1.13 NG/DL (0.76-1.46); HDL CHOLESTEROL 32 MG/DL (>40); LDL CHOLESTEROL 110 MG/DL (<100); NON-HDL-C 136 MG/DL; TOTAL 25(OH) VITAMIN D 29.4 NG/ML (30.0-100.0); TRIGLYCERIDES LEVEL 129 MG/DL (<150)
== END ==
LOC: M LAB REF 11:55
PROVIDERS: ATTEND Physician Assistant
DX: E55.9 Vitamin D deficiency, unspecified (principal); E66.3 Overweight; Z86.2 Personal history of diseases of the blood and blood-forming organs and certain disorders involving the immune mechanism; Z72.0 Tobacco use; G47.33 Obstructive sleep apnea (adult) (pediatric); Z13.220 Encounter for screening for lipoid disorders

== ENCOUNTER → 2020-09-29 | Outpatient (CLI) | payer OTHER ==
--- NOTE | 2020-09-29 14:12 | REPMRS ---
Patient History The patient states she has not had a clinical breast exam in over a year. Family history of breast cancer at age 50 in mother, colorectal cancer at age 45 in brother, colorectal cancer in maternal aunt, pancreatic cancer at age 50 or over in maternal aunt. Benign radio exam breast specimen of both breasts, January 01, 2020. Benign US guided breast biopsy of the left breast, October 19, 2019. No breast complaints. Patient signed MRS History sheet. Digital Woman Screen Mammo: September 29, 2020 - Exam #: [id number] Bilateral CC and MLO view(s) were taken. Technologist: Nioclasa Flowers, Technologist Prior study comparison: October 19, 2019, bilateral diagnostic unilateral mammo performed at [facility]. March 15, 2019, bilateral digital woman screen mammo performed at [facility]. FINDINGS: The breast tissue is heterogeneously dense. This may lower the sensitivity of mammography. The Volpara volumetric breast density category is: C. [The previously observed needle biopsy marker clip placed in the left breast at the time of the ultrasound-guided needle biopsy is no longer apparent. Patient is status post excision. There is a moderate amount of heterogeneously dense fibroglandular tissue which is fairly symmetric. There is no interval development of dominant mass, architectural distortion, or grouped microcalcification typical of malignancy. There has been no other change in the appearance of the mammogram from the prior studies. 3-D tomosynthesis shows no additional findings. Assessment: BI-RADS/ACR category 1 mammogram. Negative Mammogram. Recommendation Routine screening mammogram of both breasts in 1 year (for women over age 40). This patient's [facility] Lifetime Breast Cancer RIsk is estimated at 18.2 %. This mammogram was interpreted with the aid of an FDA-approved computer-aided dectection system. Electronically Signed By: Brent Flores MD 09/29/20 2711
== END ==
LOC: M WHC 12:44
PROVIDERS: ATTEND Surgery
DX: R92.2 Inconclusive mammogram (principal)

== ENCOUNTER → 2021-05-30 | Outpatient (REF) | payer OTHER | LOC: M WUC 17:24 | PROVIDERS: ATTEND Physician Assistant | DX: R11.2 Nausea with vomiting, unspecified (principal) ==

== ENCOUNTER → 2021-08-17 | Outpatient (CLI) | payer OTHER | LOC: M RAD 14:50 | PROVIDERS: ATTEND Physician Assistant | DX: M79.604 Pain in right leg (principal) ==

== ENCOUNTER 2022-02-27 02:57 | Emergency (ER) | payer OTHER ==
[~2022-02-27] VITALS: Ht 167.6 cm; Wt 64.9 kg
[2022-02-27] MEDS ORDERED: DERMABOND TOPICAL SKIN ADHESIVE TOP ONE (08:00)
[2022-02-27 08:37] VITALS: BP 103/64
== END 2022-02-27 08:39 | disposition home or self-care (01) ==
LOC: M ED 02:57
DX: S01.81XA Laceration without foreign body of other part of head, initial encounter (principal); F10.10 Alcohol abuse, uncomplicated; Y04.0XXA Assault by unarmed brawl or fight, initial encounter; Y92.511 Restaurant or cafe as the place of occurrence of the external cause; Y93.9 Activity, unspecified; Y99.9 Unspecified external cause status

== ENCOUNTER → 2022-09-20 | Outpatient (REF) | LOC: M EMP 08:03 | PROVIDERS: ATTEND Family Medicine | DX: Z20.822 Contact with and (suspected) exposure to COVID-19 (principal) ==

== ENCOUNTER → 2023-04-13 | Outpatient (REF) | LOC: M EMP 15:04 | PROVIDERS: ATTEND Family Medicine | DX: Z11.52 Encounter for screening for COVID-19 (principal) ==

== ENCOUNTER → 2023-06-07 | Outpatient (REF) | LOC: M EMP 14:36 | PROVIDERS: ATTEND Family Medicine | DX: Z11.52 Encounter for screening for COVID-19 (principal) ==

== ENCOUNTER → 2023-11-19 | Outpatient (REF) | payer OTHER ==
[2023-11-19 18:43] LABS: APPEARANCE, URINE MANUAL CLEAR (CLEAR); COLOR, URINE MANUAL YELLOW (YELLOW)
[2023-11-19 18:45] LABS: BILIRUBIN, URINE MANUAL NEGATIVE (NEGATIVE); BLOOD URINE MANUAL POSITIVE (NEGATIVE); GLUCOSE, URINE (UA) MANUAL NEGATIVE (NEGATIVE); KETONE, URINE MANUAL NEGATIVE (NEGATIVE); LEUKOCYTE ESTERASE, URINE MAN POSITIVE (NEGATIVE); NITRITE, URINE MANUAL NEGATIVE (NEGATIVE); PROTEIN, URINE MANUAL 2+ mg/dL (NEGATIVE); UROBILINOGEN, URINE MANUAL NORMAL (NORMAL)
[2023-11-19 19:00] LABS: BACTERIA, URINE NONE SEEN; HYALINE CAST, URINE NONE SEEN /lpf (0-1); SQUAMOUS EPITHELIAL CELL URINE SMALL AMOUNT /hpf (SMALL AMT); WBC, URINE 40-50 /hpf (0-3)
[2023-11-19 19:01] LABS: MUCUS, URINE LARGE AMOUNT (NEGATIVE)
== END ==
LOC: M LAB REF 17:32
PROVIDERS: ATTEND Physician Assistant Medical
DX: N39.0 Urinary tract infection, site not specified (principal)

== ENCOUNTER → 2025-02-12 | Outpatient (REF) | payer OTHER ==
[~2025-02-12] MED LIST changes: -IBUP-1022 PO; +IBUP600T42 PO
[2025-02-15 12:06] LABS: HPV APTIMA Not Detected (Not Detected)
== END ==
LOC: M LAB REF 15:41
PROVIDERS: ATTEND Nurse Practitioner Family
DX: Z12.4 Encounter for screening for malignant neoplasm of cervix (principal)